=== PATIENT | male | born 1980 | race Caucasian/White ===

== ENCOUNTER → 2018-01-05 | Outpatient (CLI) | payer OTHER ==
[~2018-01-05] MED LIST: ASPI81CH PO; ATOR40TA PO; BENTYL10 MG PO; CLON.2 PO; DOXE150 PO; ERYT.5TO RIGHTEYE; LITH300C PO; Percocet 5-3251 EACH PO; RISP1 PO; Zofran Odt4 MG SL
[2018-01-05 13:52] LABS: Bilirubin, Urine Neg (Neg); Blood, Urine Neg (Neg); Glucose Qualitative, Urine Neg (Neg); Ketones, Urine Neg (Neg); Leukocyte Esterase, Urine Neg (Neg); Nitrite, Urine Neg (Neg); Protein, Urine Neg (Neg); Specific Gravity, Urine 1.025 (1.003-1.022); Urobilinogen, Urine NORM (Normal)
[2018-01-05 14:12] LABS: Appearance, Urine Clear (Clear); Color, Urine Yellow (P-Yellow)
[2018-01-05 14:18] LABS: U Amphetamine Screen Not Detected; U Barbituate Screen Not Detected; U Benzodiazapine Screen Not Detected; U Buprenorphine Screen Not Detected; U Cannabinoids Screen DETECTED; U Cocaine Screen Not Detected; U Methadone Screen Not Detected; U Methamphetamine Screen Not Detected; U Opiates Screen Not Detected; U Oxycodone Screen Not Detected; U Phencyclidine Screen Not Detected; U Propoxyphene Screen Not Detected
== END | disposition home or self-care (01) ==
LOC: LAB SRC 09:58 → LAB SHORT 09:58 → EDSTATUS 12-28 10:20 → LAB FUT 12-28 10:20
PROVIDERS: Nurse Practitioner Psychiatric/Mental Health
DX: Z51.81 Encounter for therapeutic drug level monitoring (principal); Z79.899 Other long term (current) drug therapy
CPT/HCPCS: 81003

== ENCOUNTER → 2018-03-12 | Outpatient (CLI) | payer OTHER | LOC: LAB SHORT 10:39 → LAB SRC 10:39 | DX: L03.112 Cellulitis of left axilla (principal) | CPT/HCPCS: 87070; 87075; 87077; 87186; 87205 ==

== ENCOUNTER → 2018-11-08 | Outpatient (CLI) | payer OTHER | END | disposition home or self-care (01) | LOC: LAB SHORT 10:02 → LAB EV 10:02 | DX: J02.9 Acute pharyngitis, unspecified (principal) | CPT/HCPCS: 87070; 87147 ==

== ENCOUNTER → 2021-06-06 | Outpatient (CLI) | payer OTHER ==
[2021-06-06 14:34] LABS: Stool Occult Blood Guaiac 1 Neg (Neg)
== END | disposition home or self-care (01) ==
LOC: LAB SHORT 09:45 → LAB 09:45
PROVIDERS: Physician Assistant
DX: K92.1 Melena (principal)
CPT/HCPCS: 82272

== ENCOUNTER 2022-04-15 07:56 | Day surgery (SDC) | payer OTHER ==
[~2022-04-15] VITALS: Ht 177.8 cm; Wt 120.3 kg
[2022-04-15] MEDS ORDERED: LOSA50 (08:16)
[2022-04-15] MEDS ORDERED: GUANFACINE HCL2 MG (08:17)
[2022-04-15] MEDS ORDERED: OLAN20 (08:19)
[2022-04-15] MEDS ORDERED: MELATONIN5 M1 (08:19)
[2022-04-15] MEDS ORDERED: Budeprion Xl300 MG (08:19)
[2022-04-15] MEDS ORDERED: HYDPAM50 (08:19)
[2022-04-15] MEDS ORDERED: CATAPRES0.2 M1 (08:20)
[2022-04-15] MEDS ORDERED: PANT40 (08:20)
[2022-04-15] MEDS ORDERED: DOC250 (08:20)
[2022-04-15] MEDS ORDERED: Lithium Carbon450 MG (08:20)
[2022-04-15] MEDS ORDERED: OLAN10 (08:21)
--- NOTE | 2022-04-15 15:11 | NUR ---
04/15/22 1511 Ottoniel Nguyen IV START ATTEMPTED 4 TIMES. 1ST ATTEMPT IN R AC. 2ND ATTEMPT R AC INFILTRATED. 3RD ATTEMPT L AC UNSUCCESFUL. 4TH ATTEMPT R AC 20 GAUGE PLACED.
== END 2022-04-15 10:27 | disposition home or self-care (01) ==
LOC: ORSCSDS 07:56
PROVIDERS: Student in an Organized Health Care Education/Training Program
PROC: 0DBP8ZX Excision of Rectum, Via Natural or Artificial Opening Endoscopic, Diagnostic (ICD-10-PCS; principal; 2022-04-15 09:30)
PROC: 0DBN8ZX Excision of Sigmoid Colon, Via Natural or Artificial Opening Endoscopic, Diagnostic (ICD-10-PCS; principal; 2022-04-15 09:30)
DX: K92.1 Melena (principal); K21.9 Gastro-esophageal reflux disease without esophagitis; K58.0 Irritable bowel syndrome with diarrhea; K63.5 Polyp of colon; K62.1 Rectal polyp; K64.8 Other hemorrhoids; K62.89 Other specified diseases of anus and rectum; E66.9 Obesity, unspecified; Z68.38 Body mass index [BMI] 38.0-38.9, adult; Z79.899 Other long term (current) drug therapy; F20.9 Schizophrenia, unspecified; F31.9 Bipolar disorder, unspecified; Z79.82 Long term (current) use of aspirin
CPT/HCPCS: 88305; J2704; J7120

== ENCOUNTER 2024-12-03 11:55 | Emergency (ER) | payer OTHER ==
[~2024-12-03] VITALS: Ht 177.8 cm; Wt 92.1 kg
[~2024-12-03 11:55] MED LIST changes: +Budeprion Xl300 MG; +CATAPRES0.2 M1; +DOC250; +GUANFACINE HCL2 MG; +HYDPAM50; +LOSA50; +Lithium Carbon450 MG; +MELATONIN5 M1; +OLAN10; +OLAN20; +PANT40
[2024-12-03 12:36] VITALS: BP 149/79
== END 2024-12-03 14:10 | disposition home or self-care (01) ==
LOC: ER 11:55
DX: M75.21 Bicipital tendinitis, right shoulder (principal); F17.210 Nicotine dependence, cigarettes, uncomplicated; Z79.899 Other long term (current) drug therapy; Z79.82 Long term (current) use of aspirin
CPT/HCPCS: 73030; 99283-25